=== PATIENT | male | born 1985 | race Caucasian/White ===

== ENCOUNTER 2017-10-14 19:06 | Inpatient (IN) | payer OTHER ==
[~2017-10-14] VITALS: Ht 200.7 cm; Wt 142.5 kg
[~2017-10-14 19:06] MED LIST: ATOR40TA PO; IBUHYD PO; INSDET100 SC; INSU100I6 SC; INSULIN SYRING1 EAC1 SC; LEVEMIR FL100 UNIT/1 SC; LISI5 PO; Lantus100 UNIT/1 SC; METF500 PO; Novolin R100 UNIT/M SC; Novolog Fl100 UNIT/1 SC; Novolog100 UNIT/2 SC; PENVK500 PO; Prinivil5 MG PO; RXHYDACE PO; TRAM50 PO
[2017-10-14 19:38] LABS: BASOPHILS ABSOLUTE AUTO 0.05 K/mm3 (0.00-0.23); BASOPHILS PERCENT AUTO 1 % (0-2); EOSINOPHILS ABSOLUTE AUTO 0.12 K/mm3 (0.00-0.68); EOSINOPHILS PERCENT AUTO 2 % (0-6); Hematocrit 45.5 % (37.0-53.0); Hemoglobin 15.5 g/dL (13.5-17.5); IMMATURE GRAN ABSOLUTE AUTO 0.02 K/mm3 (0.00-0.10); IMMATURE GRAN PERCENT AUTO 0 % (0-1); LYMPHOCYTES ABSOLUTE AUTO 1.62 K/mm3 (0.84-5.20); LYMPHOCYTES PERCENT AUTO 24 % (21-46); MONOCYTES ABSOLUTE AUTO 0.46 K/mm3 (0.16-1.47); MONOCYTES PERCENT AUTO 7 % (4-13); Mean Corpuscular HGB 27.8 pg (26.0-34.0); Mean Corpuscular HGB Conc 34.1 g/dL (31.5-36.5); Mean Corpuscular Volume 82 fL (80-100); Mean Platelet Volume 9.8 fL (9.1-12.4); NEUTROPHILS ABSOLUTE AUTO 4.62 K/mm3 (1.96-9.15); NEUTROPHILS PERCENT AUTO 67 % (41-73); Platelet Count 146 K/mm3 (150-400); RDW Coefficient Variation 12.3 % (11.7-14.2); RDW Standard Deviation 36.3 fL (35.1-46.3); Red Blood Cell Count 5.58 M/mm3 (4.30-5.90); White Blood Cell Count 6.89 K/mm3 (4.00-11.30)
[2017-10-14 20:07] LABS: Source, Urine Clean Catch
[2017-10-14 20:11] LABS: Appearance, Urine Clear (Clear); Bilirubin, Urine Neg (Neg); Blood, Urine Neg (Neg); Color, Urine Yellow (P-Yellow); Glucose Qualitative, Urine 4+ (Neg); Ketones, Urine 3+ (Neg); Leukocyte Esterase, Urine Neg (Neg); Nitrite, Urine Neg (Neg); Protein, Urine Neg (Neg); Urobilinogen, Urine NORM (Normal)
[2017-10-14 20:15] LABS: Alanine Aminotransfer (ALT/SGP 176 U/L (12-78); Albumin, Blood 3.6 g/dL (3.4-5.0); Alk Phos 147 U/L (50-136); Anion Gap 15 mmol/L (6-16); Aspartate Aminotrans (AST/SGOT 69 U/L (12-37); Bilirubin, Total 1.6 mg/dL (0.1-1.0); Blood Urea Nitrogen 23 mg/dL (8-24); Bun/Creatinine Ratio 50.1 (12.0-20.0); CO2, Blood 20 mmol/L (21-32); Calcium, Blood 9.2 mg/dL (8.5-10.1); Chloride, Blood 89 mmol/L (98-108); Creatinine, Blood 0.46 mg/dL (0.60-1.20); Globulin, Blood 3.5 g/dL (2.2-4.0); Glomerular Filtration Rate >60 (60-); Glucose, Blood 692 mg/dL (70-99); Potassium, Blood 4.2 mmol/L (3.5-5.5); Sodium, Blood 124 mmol/L (136-145); Total Protein, Blood 7.1 g/dL (6.4-8.2)
[2017-10-14 21:14] LABS: Base Excess Venous 0.6 mmol/L; Bicarbonate Venous 24.9 mmol/L (24.0-30.0); PCO2 Venous 41.6 mmHg (38-42); PO2 Venous 137 mmHg (38-42)
[2017-10-14 22:28] LABS: Beta-hydroxybutyrate 9.7 mg/dL (0.2-2.8); Glucose, Blood 590 mg/dL (70-99)
[2017-10-14 23:16] LABS: Amylase, Blood 21 U/L (25-115); Anion Gap 10 mmol/L (6-16); CO2, Blood 27 mmol/L (21-32); Chloride, Blood 95 mmol/L (98-108); Ethanol (Alcohol), Blood, Med <3 mg/dL; Magnesium, Blood 1.8 mg/dL (1.6-2.4); Phosphorus, Blood 3.6 mg/dL (2.5-4.9); Potassium, Blood 3.7 mmol/L (3.5-5.5); Sodium, Blood 132 mmol/L (136-145)
[2017-10-14 23:50] LABS: Osmolality, Serum 306 mos/KG (275-300)
[2017-10-15 03:46] LABS: BASOPHILS ABSOLUTE AUTO 0.04 K/mm3 (0.00-0.23); BASOPHILS PERCENT AUTO 1 % (0-2); EOSINOPHILS ABSOLUTE AUTO 0.17 K/mm3 (0.00-0.68); EOSINOPHILS PERCENT AUTO 3 % (0-6); Hematocrit 39.8 % (37.0-53.0); Hemoglobin 13.7 g/dL (13.5-17.5); IMMATURE GRAN ABSOLUTE AUTO 0.02 K/mm3 (0.00-0.10); IMMATURE GRAN PERCENT AUTO 0 % (0-1); LYMPHOCYTES ABSOLUTE AUTO 2.26 K/mm3 (0.84-5.20); LYMPHOCYTES PERCENT AUTO 36 % (21-46); MONOCYTES ABSOLUTE AUTO 0.43 K/mm3 (0.16-1.47); MONOCYTES PERCENT AUTO 7 % (4-13); Mean Corpuscular HGB 27.5 pg (26.0-34.0); Mean Corpuscular HGB Conc 34.4 g/dL (31.5-36.5); Mean Corpuscular Volume 80 fL (80-100); Mean Platelet Volume 9.6 fL (9.1-12.4); NEUTROPHILS ABSOLUTE AUTO 3.35 K/mm3 (1.96-9.15); NEUTROPHILS PERCENT AUTO 54 % (41-73); Platelet Count 154 K/mm3 (150-400); RDW Coefficient Variation 12.5 % (11.7-14.2); RDW Standard Deviation 35.8 fL (35.1-46.3); Red Blood Cell Count 4.99 M/mm3 (4.30-5.90); White Blood Cell Count 6.27 K/mm3 (4.00-11.30)
[2017-10-15 04:07] LABS: Anion Gap 6 mmol/L (6-16); Beta-hydroxybutyrate 1.8 mg/dL (0.2-2.8); Blood Urea Nitrogen 18 mg/dL (8-24); CO2, Blood 30 mmol/L (21-32); Calcium, Blood 8.3 mg/dL (8.5-10.1); Chloride, Blood 102 mmol/L (98-108); Creatinine, Blood 0.49 mg/dL (0.60-1.20); Glomerular Filtration Rate >60 (60-); Glucose, Blood 221 mg/dL (70-99); Sodium, Blood 138 mmol/L (136-145)
[2017-11-23] MEDS ORDERED: NIX59 ML TOP (15:23)
[2018-04-05] MEDS ORDERED: Monodox100 MG PO (16:54)
[2018-04-05] MEDS ORDERED: Norco 5-325 Ta1 EACH PO (16:55)
[2018-07-08] MEDS ORDERED: Novolog Fl100 UNIT/1 SC (17:10)
[2018-07-08] MEDS ORDERED: METF500C PO (17:10)
[2018-07-08] MEDS ORDERED: INSULIN PEN NE1 EACH SC (17:10)
[2018-07-08] MEDS ORDERED: LEVEMIR FL100 UNIT/1 SC (17:10)
== END 2017-10-15 14:40 | disposition home or self-care (01) | DRG 638 ==
LOC: ER 19:06 → ICUE 10-15 00:38 → ICUW 10-15 00:38 → ICUE 10-15 00:44
PROVIDERS: Family Medicine; Physician Assistant
DX: E11.10 Type 2 diabetes mellitus with ketoacidosis without coma (principal); E87.1 Hypo-osmolality and hyponatremia; E11.65 Type 2 diabetes mellitus with hyperglycemia; I10 Essential (primary) hypertension; E78.5 Hyperlipidemia, unspecified; F17.220 Nicotine dependence, chewing tobacco, uncomplicated; E66.9 Obesity, unspecified; Z68.35 Body mass index [BMI] 35.0-35.9, adult; Z79.84 Long term (current) use of oral hypoglycemic drugs; Z79.4 Long term (current) use of insulin; Z79.899 Other long term (current) drug therapy
CPT/HCPCS: 36415; 71046; 80048; 80051; 80053; 81003; 82010; 82150; 82803; 82947; 83036; 83690; 83735; 83930; 84100; 85025; 93005; 93010; 96360; 96361; 99285; C9113; G0480; J1650; J1815; J2001; J3480; J7030; J7050

== ENCOUNTER 2017-10-23 20:42 | Emergency (ER) | payer OTHER ==
[~2017-10-23] VITALS: Ht 200.7 cm; Wt 140.6 kg
[2017-10-23 22:41] LABS: BASOPHILS ABSOLUTE AUTO 0.05 K/mm3 (0.00-0.23); BASOPHILS PERCENT AUTO 1 % (0-2); EOSINOPHILS ABSOLUTE AUTO 0.06 K/mm3 (0.00-0.68); EOSINOPHILS PERCENT AUTO 1 % (0-6); Hematocrit 45.4 % (37.0-53.0); Hemoglobin 15.9 g/dL (13.5-17.5); IMMATURE GRAN ABSOLUTE AUTO 0.02 K/mm3 (0.00-0.10); IMMATURE GRAN PERCENT AUTO 0 % (0-1); LYMPHOCYTES ABSOLUTE AUTO 1.92 K/mm3 (0.84-5.20); LYMPHOCYTES PERCENT AUTO 25 % (21-46); MONOCYTES ABSOLUTE AUTO 0.73 K/mm3 (0.16-1.47); MONOCYTES PERCENT AUTO 10 % (4-13); Mean Corpuscular HGB 27.2 pg (26.0-34.0); Mean Corpuscular Volume 78 fL (80-100); Mean Platelet Volume 9.2 fL (9.1-12.4); NEUTROPHILS ABSOLUTE AUTO 4.79 K/mm3 (1.96-9.15); NEUTROPHILS PERCENT AUTO 63 % (41-73); Platelet Count 194 K/mm3 (150-400); RDW Coefficient Variation 12.1 % (11.7-14.2); RDW Standard Deviation 33.5 fL (35.1-46.3); Red Blood Cell Count 5.85 M/mm3 (4.30-5.90); White Blood Cell Count 7.57 K/mm3 (4.00-11.30)
[2017-10-23 22:56] LABS: Anion Gap 12 mmol/L (6-16); Blood Urea Nitrogen 18 mg/dL (8-24); Bun/Creatinine Ratio 32.1 (12.0-20.0); CO2, Blood 26 mmol/L (21-32); Calcium, Blood 9.6 mg/dL (8.5-10.1); Chloride, Blood 93 mmol/L (98-108); Creatinine, Blood 0.56 mg/dL (0.60-1.20); Glomerular Filtration Rate >60 (60-); Glucose, Blood 467 mg/dL (70-99); Potassium, Blood 3.9 mmol/L (3.5-5.5); Sodium, Blood 131 mmol/L (136-145)
[2017-10-23] MEDS ORDERED: CEPH500 PO (23:20)
[2017-10-23] MEDS ORDERED: Bactrim Ds Tab1 EACH PO (23:20)
[2017-11-23] MEDS ORDERED: NIX59 ML TOP (15:23)
[2018-04-05] MEDS ORDERED: Monodox100 MG PO (16:54)
[2018-04-05] MEDS ORDERED: Norco 5-325 Ta1 EACH PO (16:55)
[2018-07-08] MEDS ORDERED: LEVEMIR FL100 UNIT/1 SC (17:10)
[2018-07-08] MEDS ORDERED: METF500C PO (17:10)
[2018-07-08] MEDS ORDERED: INSULIN PEN NE1 EACH SC (17:10)
[2018-07-08] MEDS ORDERED: Novolog Fl100 UNIT/1 SC (17:10)
== END 2017-10-23 23:50 | disposition home or self-care (01) ==
LOC: ER 20:42
PROVIDERS: Physician Assistant
DX: L03.011 Cellulitis of right finger (principal); E11.10 Type 2 diabetes mellitus with ketoacidosis without coma; Z79.4 Long term (current) use of insulin; Z79.899 Other long term (current) drug therapy
CPT/HCPCS: 10060; 36415; 80048; 85025; 87070; 87075; 87077; 87147; 87186; 87205; 96374; 99283; J0690

== ENCOUNTER 2017-11-23 15:15 | Emergency (ER) | END 2017-11-23 15:36 | disposition home or self-care (01) ==

== ENCOUNTER 2018-03-17 12:09 | Emergency (ER) | payer OTHER ==
[~2018-03-17] VITALS: Ht 200.7 cm; Wt 140.6 kg
[~2018-03-17 12:09] MED LIST changes: +Bactrim Ds Tab1 EACH PO; +CEPH500 PO; +NIX59 ML TOP
[2018-03-17 12:41] LABS: BASOPHILS ABSOLUTE AUTO 0.04 K/mm3 (0.00-0.23); BASOPHILS PERCENT AUTO 1 % (0-2); EOSINOPHILS ABSOLUTE AUTO 0.06 K/mm3 (0.00-0.68); EOSINOPHILS PERCENT AUTO 1 % (0-6); Hematocrit 42.8 % (37.0-53.0); Hemoglobin 15.8 g/dL (13.5-17.5); IMMATURE GRAN ABSOLUTE AUTO 0.03 K/mm3 (0.00-0.10); IMMATURE GRAN PERCENT AUTO 1 % (0-1); LYMPHOCYTES ABSOLUTE AUTO 1.58 K/mm3 (0.84-5.20); LYMPHOCYTES PERCENT AUTO 24 % (21-46); MONOCYTES ABSOLUTE AUTO 0.66 K/mm3 (0.16-1.47); MONOCYTES PERCENT AUTO 10 % (4-13); Mean Corpuscular HGB 28.2 pg (26.0-34.0); Mean Corpuscular HGB Conc 36.9 g/dL (31.5-36.5); Mean Corpuscular Volume 76 fL (80-100); Mean Platelet Volume 9.5 fL (9.1-12.4); NEUTROPHILS ABSOLUTE AUTO 4.25 K/mm3 (1.96-9.15); NEUTROPHILS PERCENT AUTO 64 % (41-73); Platelet Count 199 K/mm3 (150-400); RDW Coefficient Variation 12.2 % (11.7-14.2); RDW Standard Deviation 33.3 fL (35.1-46.3); White Blood Cell Count 6.62 K/mm3 (4.00-11.30)
[2018-03-17 12:57] LABS: Source, Urine Clean Catch
[2018-03-17 13:01] LABS: Bilirubin, Urine Neg (Neg); Blood, Urine Neg (Neg); Glucose Qualitative, Urine 4+ (Neg); Ketones, Urine Neg (Neg); Leukocyte Esterase, Urine Neg (Neg); Nitrite, Urine Neg (Neg); Protein, Urine Neg (Neg); Specific Gravity, Urine 1.005 (1.003-1.022); Urobilinogen, Urine NORM (Normal)
[2018-03-17 13:47] LABS: Alanine Aminotransfer (ALT/SGP 72 U/L (12-78); Albumin, Blood 3.9 g/dL (3.4-5.0); Albumin/Globulin Ratio 1.1 (0.8-1.8); Alk Phos 132 U/L (50-136); Anion Gap 19 mmol/L (6-16); Aspartate Aminotrans (AST/SGOT 35 U/L (12-37); Bilirubin, Total 1.6 mg/dL (0.1-1.0); Blood Urea Nitrogen 28 mg/dL (8-24); Bun/Creatinine Ratio 52.1 (12.0-20.0); CO2, Blood 19 mmol/L (21-32); Chloride, Blood 84 mmol/L (98-108); Creatinine, Blood 0.54 mg/dL (0.60-1.20); Globulin, Blood 3.4 g/dL (2.2-4.0); Glomerular Filtration Rate >60 (60-); Glucose, Blood 803 mg/dL (70-99); Potassium, Blood 4.5 mmol/L (3.5-5.5); Sodium, Blood 122 mmol/L (136-145); Total Protein, Blood 7.3 g/dL (6.4-8.2)
[2018-03-17 13:52] LABS: Color, Urine Yellow (P-Yellow)
[2018-03-17 13:53] LABS: Appearance, Urine Clear (Clear)
[2018-03-17 14:19] LABS: Beta-hydroxybutyrate 3.9 mg/dL (0.2-2.8)
[2018-03-17 17:55] LABS: Calcium, Ionized (POC) 1.21 mmol/L (1.10-1.46); Chloride (POC) 95 mmol/L (98-108); Creatinine (POC) 0.4 mg/dL (0.8-1.3); Glucose (ISTAT POC) 395 mg/dL (70-99); Hemoglobin (POC) 13.9 g/dL (13.5-17.5); Potassium (POC) 3.6 mmol/L (3.5-5.5); Sodium (POC) 132 mmol/L (135-148); Total CO2 (POC) 24 mmol/L (21-32)
[2018-03-17] MEDS ORDERED: METF500C PO (18:16)
[2018-03-17] MEDS ORDERED: INSDET100 SC (18:16)
== END 2018-03-17 18:40 | disposition home or self-care (01) ==
LOC: ER 12:09
PROVIDERS: Emergency Medicine; Physician Assistant
DX: E11.65 Type 2 diabetes mellitus with hyperglycemia (principal); E11.10 Type 2 diabetes mellitus with ketoacidosis without coma; R63.4 Abnormal weight loss; Z68.34 Body mass index [BMI] 34.0-34.9, adult; F17.220 Nicotine dependence, chewing tobacco, uncomplicated; Z91.013 Allergy to seafood; Z79.899 Other long term (current) drug therapy; Z79.4 Long term (current) use of insulin
CPT/HCPCS: 36415; 71046; 80047; 80053; 81000; 81003; 82010; 82947; 85014; 85025; 93005; 93010; 96360; 99283; J1815; J7030

== ENCOUNTER 2018-04-13 10:47 | Emergency (ER) | payer OTHER ==
[~2018-04-13] VITALS: Ht 200.7 cm; Wt 136.1 kg
[~2018-04-13 10:47] MED LIST changes: +METF500C PO; +Monodox100 MG PO; +Norco 5-325 Ta1 EACH PO
[2018-04-13 11:32] LABS: BASOPHILS ABSOLUTE AUTO 0.04 K/mm3 (0.00-0.23); BASOPHILS PERCENT AUTO 1 % (0-2); EOSINOPHILS ABSOLUTE AUTO 0.18 K/mm3 (0.00-0.68); EOSINOPHILS PERCENT AUTO 3 % (0-6); Hematocrit 43.3 % (37.0-53.0); Hemoglobin 15.2 g/dL (13.5-17.5); IMMATURE GRAN ABSOLUTE AUTO 0.06 K/mm3 (0.00-0.10); IMMATURE GRAN PERCENT AUTO 1 % (0-1); LYMPHOCYTES ABSOLUTE AUTO 1.53 K/mm3 (0.84-5.20); LYMPHOCYTES PERCENT AUTO 25 % (21-46); MONOCYTES ABSOLUTE AUTO 0.44 K/mm3 (0.16-1.47); MONOCYTES PERCENT AUTO 7 % (4-13); Mean Corpuscular HGB 27.3 pg (26.0-34.0); Mean Corpuscular HGB Conc 35.1 g/dL (31.5-36.5); Mean Corpuscular Volume 78 fL (80-100); Mean Platelet Volume 9.1 fL (9.1-12.4); NEUTROPHILS ABSOLUTE AUTO 3.78 K/mm3 (1.96-9.15); NEUTROPHILS PERCENT AUTO 63 % (41-73); Platelet Count 188 K/mm3 (150-400); RDW Coefficient Variation 11.9 % (11.7-14.2); RDW Standard Deviation 33.4 fL (35.1-46.3); Red Blood Cell Count 5.56 M/mm3 (4.30-5.90); White Blood Cell Count 6.03 K/mm3 (4.00-11.30)
[2018-04-13 12:15] LABS: Alanine Aminotransfer (ALT/SGP 53 U/L (12-78); Albumin, Blood 3.7 g/dL (3.4-5.0); Alk Phos 126 U/L (50-136); Anion Gap 11 mmol/L (6-16); Aspartate Aminotrans (AST/SGOT 22 U/L (12-37); Beta-hydroxybutyrate 1.6 mg/dL (0.2-2.8); Bilirubin, Total 0.6 mg/dL (0.1-1.0); Blood Urea Nitrogen 15 mg/dL (8-24); Bun/Creatinine Ratio 27.9 (12.0-20.0); CO2, Blood 24 mmol/L (21-32); Calcium, Blood 8.8 mg/dL (8.5-10.1); Chloride, Blood 93 mmol/L (98-108); Creatinine, Blood 0.54 mg/dL (0.60-1.20); Globulin, Blood 3.6 g/dL (2.2-4.0); Glomerular Filtration Rate >60 (60-); Glucose, Blood 684 mg/dL (70-99); Potassium, Blood 4.1 mmol/L (3.5-5.5); Sodium, Blood 128 mmol/L (136-145); Total Protein, Blood 7.3 g/dL (6.4-8.2)
[2018-04-13 14:10] LABS: Calcium, Ionized (POC) 1.07 mmol/L (1.10-1.46); Chloride (POC) 97 mmol/L (98-108); Creatinine (POC) 0.4 mg/dL (0.8-1.3); Glucose (ISTAT POC) 433 mg/dL (70-99); Hemoglobin (POC) 12.9 g/dL (13.5-17.5); Potassium (POC) 4.2 mmol/L (3.5-5.5); Sodium (POC) 132 mmol/L (135-148); Total CO2 (POC) 24 mmol/L (21-32)
== END 2018-04-13 14:27 | disposition home or self-care (01) ==
LOC: ER 10:47
PROVIDERS: Emergency Medicine
DX: L02.11 Cutaneous abscess of neck (principal); E11.65 Type 2 diabetes mellitus with hyperglycemia; F17.220 Nicotine dependence, chewing tobacco, uncomplicated; Z91.013 Allergy to seafood; Z79.899 Other long term (current) drug therapy; Z79.4 Long term (current) use of insulin
CPT/HCPCS: 10061; 36415; 80047; 80053; 82010; 82947; 85014; 85025; 87070; 87075; 87077; 87147; 87186; 87205; 96360; 96361; 99283-25; J1815; J7030

== ENCOUNTER → 2019-12-09 | Outpatient (CLI) | payer OTHER ==
[~2019-12-09] MED LIST changes: +INSULIN PEN NE1 EACH SC
[2019-12-09 12:34] LABS: Influenza A Negative (NEGATIVE); Influenza B Negative (NEGATIVE)
== END ==
LOC: LAB SHORT 11:34
PROVIDERS: Internal Medicine
DX: R50.9 Fever, unspecified (principal)
CPT/HCPCS: 87804

== ENCOUNTER 2019-12-22 14:37 | Emergency (ER) | payer OTHER ==
[~2019-12-22] VITALS: Ht 200.7 cm; Wt 136.1 kg
[2019-12-22 16:37] LABS: BASOPHILS ABSOLUTE AUTO 0.04 K/mm3 (0.00-0.23); BASOPHILS PERCENT AUTO 0 % (0-2); EOSINOPHILS ABSOLUTE AUTO 0.03 K/mm3 (0.00-0.68); EOSINOPHILS PERCENT AUTO 0 % (0-6); Hematocrit 41.5 % (37.0-53.0); Hemoglobin 14.2 g/dL (13.5-17.5); IMMATURE GRAN ABSOLUTE AUTO 0.07 K/mm3 (0.00-0.10); IMMATURE GRAN PERCENT AUTO 0 % (0-1); LYMPHOCYTES ABSOLUTE AUTO 1.28 K/mm3 (0.84-5.20); LYMPHOCYTES PERCENT AUTO 8 % (21-46); MONOCYTES ABSOLUTE AUTO 1.49 K/mm3 (0.16-1.47); MONOCYTES PERCENT AUTO 9 % (4-13); Mean Corpuscular HGB 27.9 pg (26.0-34.0); Mean Corpuscular HGB Conc 34.2 g/dL (31.5-36.5); Mean Corpuscular Volume 82 fL (80-100); Mean Platelet Volume 9.1 fL (9.1-12.4); NEUTROPHILS PERCENT AUTO 83 % (41-73); Platelet Count 204 K/mm3 (150-400); RDW Coefficient Variation 12.3 % (11.7-14.2); RDW Standard Deviation 36.7 fL (35.1-46.3); Red Blood Cell Count 5.09 M/mm3 (4.30-5.90); White Blood Cell Count 16.81 K/mm3 (4.00-11.30)
[2019-12-22 16:59] LABS: Alanine Aminotransfer (ALT/SGP 22 U/L (12-78); Albumin, Blood 3.7 g/dL (3.4-5.0); Albumin/Globulin Ratio 0.9 (0.8-1.8); Alk Phos 93 U/L (50-136); Anion Gap 5 mmol/L (6-16); Aspartate Aminotrans (AST/SGOT 9 U/L (12-37); Bilirubin, Total 1.7 mg/dL (0.1-1.0); Blood Urea Nitrogen 9 mg/dL (8-24); Bun/Creatinine Ratio 13.7 (12.0-20.0); CO2, Blood 27 mmol/L (21-32); Calcium, Blood 9.1 mg/dL (8.5-10.1); Chloride, Blood 101 mmol/L (98-108); Creatinine, Blood 0.66 mg/dL (0.60-1.20); Globulin, Blood 4.3 g/dL (2.2-4.0); Glomerular Filtration Rate >60 (60-); Glucose, Blood 146 mg/dL (70-99); Potassium, Blood 4.2 mmol/L (3.5-5.5); Sodium, Blood 133 mmol/L (136-145)
[2019-12-22] MEDS ORDERED: Amoxicillin500 MG PO (17:24)
== END 2019-12-22 17:35 | disposition home or self-care (01) ==
LOC: ER 14:37
PROVIDERS: Emergency Medicine
DX: J02.0 Streptococcal pharyngitis (principal); E11.9 Type 2 diabetes mellitus without complications; F17.220 Nicotine dependence, chewing tobacco, uncomplicated
CPT/HCPCS: 36415; 71045; 80053; 85025; 87430; 96360; 99283-25; J7030

== ENCOUNTER 2020-10-26 22:35 | Emergency (ER) | payer SELFPAY ==
[~2020-10-26] VITALS: Ht 200.7 cm; Wt 136.1 kg
[~2020-10-26 22:35] MED LIST changes: +Amoxicillin500 MG PO
[2020-10-26] MEDS ORDERED: IBU600 MG PO (23:27)
== END 2020-10-26 23:35 | disposition home or self-care (01) ==
LOC: ER 22:35
DX: S46.212A Strain of muscle, fascia and tendon of other parts of biceps, left arm, initial encounter (principal); E11.9 Type 2 diabetes mellitus without complications; F17.220 Nicotine dependence, chewing tobacco, uncomplicated; Z91.02 Food additives allergy status; X50.0XXA Overexertion from strenuous movement or load, initial encounter
CPT/HCPCS: 99283

== ENCOUNTER 2020-11-04 16:25 | Emergency (ER) | payer OTHER ==
[~2020-11-04] VITALS: Ht 200.7 cm; Wt 136.1 kg
[~2020-11-04 16:25] MED LIST changes: +IBU600 MG PO
[2020-11-04] MEDS ORDERED: HYDR1TAB94 PO ×2 (19:04→19:50)
== END 2020-11-04 20:01 | disposition home or self-care (01) ==
LOC: ER 16:25
DX: S46.212A Strain of muscle, fascia and tendon of other parts of biceps, left arm, initial encounter (principal); F17.220 Nicotine dependence, chewing tobacco, uncomplicated; Z91.013 Allergy to seafood
CPT/HCPCS: 73080; 76882; 96374; 96375; 99284-25; A9270; J2270; J2405

== ENCOUNTER 2020-11-14 05:16 | Day surgery (SDC) | payer OTHER ==
[~2020-11-14] VITALS: Ht 200.7 cm; Wt 149.0 kg
[~2020-11-14 05:16] MED LIST changes: +HYDR1TAB94 PO
--- NOTE | 2020-11-14 07:54 | NUR ---
11/14/20 0754 Kayce Giang TIMEOUT AND SITE CHECK FOR ISB DONE WITH DR QUINTANILLA.
--- NOTE | 2020-11-14 10:06 | NUR ---
11/14/20 1006 JUAN DUNHAM PT TO STEP DOWN VIA BED, SBA TO RECLINER. PT VERY DROWSY AND SATS DROPPING WHEN ASLEEP. PT PLACED ON 5L VIA NON-REBREATHER. EDUCATED ON SLEEP APNEA WELL DUE TO OBSTRUCTION. PT DENIES PAIN/NAUSEA. IV PATENT
== END 2020-11-14 10:48 | disposition home or self-care (01) ==
LOC: ORSCSDS 05:16
PROVIDERS: Orthopaedic Surgery
PROC: 0LM40ZZ Reattachment of Left Upper Arm Tendon, Open Approach (ICD-10-PCS; principal; 2020-11-14 08:00)
DX: S46.212A Strain of muscle, fascia and tendon of other parts of biceps, left arm, initial encounter (principal); I10 Essential (primary) hypertension; E11.9 Type 2 diabetes mellitus without complications; E66.01 Morbid (severe) obesity due to excess calories; Z68.37 Body mass index [BMI] 37.0-37.9, adult
CPT/HCPCS: 82947; C1713; J0171; J0690; J1100; J1885; J2250; J2405; J2704; J2795; J3010; J7120

== ENCOUNTER 2021-03-24 12:30 | Emergency (ER) | payer OTHER ==
[~2021-03-24] VITALS: Ht 200.7 cm; Wt 136.1 kg
[2021-03-24] MEDS ORDERED: FUNGOID-D113 G1 TOP (12:47)
[2021-03-24] MEDS ORDERED: Vibramycin100 MG PO (12:47)
== END 2021-03-24 12:47 | disposition home or self-care (01) ==
LOC: ER 12:30
DX: L03.116 Cellulitis of left lower limb (principal); E11.9 Type 2 diabetes mellitus without complications; F17.220 Nicotine dependence, chewing tobacco, uncomplicated; Z91.013 Allergy to seafood
CPT/HCPCS: 99283

== ENCOUNTER 2021-03-26 01:15 | Observation (INO) | payer OTHER ==
[~2021-03-26] VITALS: Ht 200.7 cm; Wt 134.4 kg
[~2021-03-26 01:15] MED LIST changes: +FUNGOID-D113 G1 TOP; +Vibramycin100 MG PO
[2021-03-26 05:25] LABS: BASOPHILS ABSOLUTE AUTO 0.04 K/mm3 (0.00-0.23); BASOPHILS PERCENT AUTO 0 % (0-2); EOSINOPHILS PERCENT AUTO 1 % (0-6); Hematocrit 42.6 % (37.0-53.0); Hemoglobin 14.9 g/dL (13.5-17.5); IMMATURE GRAN ABSOLUTE AUTO 0.05 K/mm3 (0.00-0.10); IMMATURE GRAN PERCENT AUTO 1 % (0-1); LYMPHOCYTES ABSOLUTE AUTO 2.05 K/mm3 (0.84-5.20); LYMPHOCYTES PERCENT AUTO 23 % (21-46); MONOCYTES ABSOLUTE AUTO 1.04 K/mm3 (0.16-1.47); MONOCYTES PERCENT AUTO 11 % (4-13); Mean Corpuscular HGB 27.4 pg (26.0-34.0); Mean Corpuscular Volume 78 fL (80-100); Mean Platelet Volume 9.7 fL (9.1-12.4); NEUTROPHILS ABSOLUTE AUTO 5.85 K/mm3 (1.96-9.15); NEUTROPHILS PERCENT AUTO 64 % (41-73); Platelet Count 151 K/mm3 (150-400); RDW Coefficient Variation 12.2 % (11.7-14.2); RDW Standard Deviation 34.5 fL (35.1-46.3); Red Blood Cell Count 5.44 M/mm3 (4.30-5.90); White Blood Cell Count 9.13 K/mm3 (4.00-11.30)
[2021-03-26 05:42] LABS: Anion Gap 7 mmol/L (6-16); Blood Urea Nitrogen 11 mg/dL (8-24); CO2, Blood 26 mmol/L (21-32); Calcium, Blood 8.8 mg/dL (8.5-10.1); Chloride, Blood 99 mmol/L (98-108); Creatinine, Blood 0.61 mg/dL (0.60-1.20); Glomerular Filtration Rate >60 (60-); Glucose, Blood 332 mg/dL (70-99); Potassium, Blood 3.6 mmol/L (3.5-5.5); Sodium, Blood 132 mmol/L (136-145)
--- NOTE | 2021-03-26 07:30 | NUR ---
Assumed Care Received report from VERONICA Beckett RN. Patient arrived via w/c with one personal belongings bag. Encouraged to send home nonessential and valuable items. Transferred self to bed from w/c, appears to have impaired gait d/t pain from abscess/wound to L foot. Settled to room, call light near, bed in lowest position. A/Ox4.
--- NOTE | 2021-03-26 17:55 | NUR ---
Shift Summary A/Ox4, pleasant and cooperative. Up independently in room and to bathroom. Weight bearing as tolerated on L foot. Pain to L foot, but tolerable. Appetite is good. Patient has been sleeping throughout shift, easily arousable. Awaiting consult from Dr. Cervantes. Discuss effects of uncontrolled glucose and its complications, patient showed interests and engagement in conversation. Standing weight obtained. Consent for photo obtained and photo of wound to L foot placed in chart. VSS, afebrile. WCTM.
--- NOTE | 2021-03-27 05:43 | NUR ---
36 year old Male admitted yesterday for lt foot abscess. PT has wound between great & second toe draining mod amt purulent sang drainage x 1. Lt foot edema redness warmth. On IV vanco & unasyn. Will be NPO this AM after CLear Liquid BF for I & D lt foot wound. IDDM PT has BG greater than 250 at HS. Recieced 10 units semglee insulin. Medicated for lt foot pain of 10 with tylenol 650 mg with mild helpful effect. Elevated lt foot on 2 pillows to decrease edema & pain.
[2021-03-27 06:03] LABS: Hemoglobin 14.1 g/dL (13.5-17.5); Mean Corpuscular HGB 27.6 pg (26.0-34.0); Mean Corpuscular HGB Conc 34.4 g/dL (31.5-36.5); Mean Corpuscular Volume 80 fL (80-100); Mean Platelet Volume 9.7 fL (9.1-12.4); Platelet Count 127 K/mm3 (150-400); RDW Coefficient Variation 12.2 % (11.7-14.2); RDW Standard Deviation 35.1 fL (35.1-46.3); Red Blood Cell Count 5.11 M/mm3 (4.30-5.90); White Blood Cell Count 6.35 K/mm3 (4.00-11.30)
[2021-03-27 06:30] LABS: Anion Gap 6 mmol/L (6-16); Blood Urea Nitrogen 11 mg/dL (8-24); Bun/Creatinine Ratio 18.7 (12.0-20.0); CO2, Blood 27 mmol/L (21-32); Calcium, Blood 8.2 mg/dL (8.5-10.1); Chloride, Blood 104 mmol/L (98-108); Creatinine, Blood 0.59 mg/dL (0.60-1.20); Glomerular Filtration Rate >60 (60-); Glucose, Blood 242 mg/dL (70-99); Potassium, Blood 3.8 mmol/L (3.5-5.5); Sodium, Blood 137 mmol/L (136-145); Vancomycin, Trough 4.9 ug/mL (5.0-10.0)
[2021-03-27 08:58] LABS: SARS-Cov-2 (COVID-19) PCR, MMC NEGATIVE (NEGATIVE)
--- NOTE | 2021-03-27 11:18 | NUR ---
BLOOD GLUCOSE/NPO PATIENT CURRENTLY NPO. BLOOD GLUCOSE > 300. PER DEBORAH SALAZAR TO TREAT PER MED CS.
--- NOTE | 2021-03-27 15:25 | NUR ---
THE PATIENT WAS BROUGHT TO D/S FOR HIS PROCEDURE. Ambulatory in Day Surgery Lungs clear T/O to Auscultation. History, Chart, Medications and Allergies reviewed before start of procedure.Patient confirms NPO status and agrees with scheduled surgery. Pre-Op teaching done. Pt verbalizes understanding.
--- NOTE | 2021-03-27 17:37 | NUR ---
03/27/21 1737 Susan Rose LEFT ANKLE TOURNIQUET 18" INFLATED AT 1639, DEFLATED AT 1648. PRESSURE SET AT 250 MMHG.
--- NOTE | 2021-03-27 18:06 | NUR ---
Shift Summary AOx4, pleasant and cooperative. Slept for the most part of the day. Had I&D of L foot. Bulky lilian wrap to L foot. Able to wiggle toes, warm to touch, and cap refill WNL. Transferred self back to bed, stand pivot. Dressing C/D/I. Sitting up in bed with L leg elevated per orders. Patient in bed having dinner. Call light near, no acute complaints. VSS. WCTM.
--- NOTE | 2021-03-28 06:17 | NUR ---
36 year old male with IDDM poorly controlled with lt foot abscess I & D & antibiotic therapy with unasyn & vancomycin IV. PT sleeps must of shift rouses easily & encouraged oral intake. Void x 1 uses urinal at bedside. LT foot elevated as ordered. Blood glucose elevated at HS recieved 20 units semglee. PT has flat affect withdrawn. VSS. Support offered for current illness.
[2021-03-28 06:45] LABS: Vancomycin, Trough 7.9 ug/mL (5.0-10.0)
--- NOTE | 2021-03-28 14:40 | NUR ---
PATIENT REQUESTING TO GO HOME. SPOKE TO DR. BETANCUR, STATED HE WAS OK WITH D/C IF CLEARED BY PODIATRY. CALLED DR. BOYD' OFFICE, LEFT MESSAGE WITH KATHY TO SEE IF PT COULD BE DISCHARGED.
[2021-03-28] MEDS ORDERED: INSULANPEN SC (16:14)
[2021-03-28] MEDS ORDERED: METF500 PO (16:14)
[2021-03-28] MEDS ORDERED: VISBIOME 112.51 EACH PO (16:15)
[2021-03-28] MEDS ORDERED: AMOCLA875 PO (16:16)
--- NOTE | 2021-03-28 16:51 | NUR ---
PATIENT DISCHARGED TO HOME. IV SALINE LOCK REMOVED WITHOUT INCIDENT. PT HAS NO PCP; WAS GIVEN NEW PATIENT PACKET TO SET UP CARE WITH [facility]. EDUCATED HIM THAT HIS LAST HGB AIC WAS > 10; HE IS STILL DIABETIC (DESPITE HIS ASSERTION THAT HE IS NOT) AND HE WILL NEED FOLLOW UP CARE GOING FORWARD TO MANAGE HIS CHRONIC ILLNESS. MEDICATIONS WERE FAXED TO [facility]; SPOKE TO PHARMACY ABOUT PT GETTING GLUCOMETER AND STRIPS TO TEST BG AND THEY STATED IT WILL NOT BE COVERED BY HIS INSURANCE, RECOMMENDED PT GO TO [facility] TO GET RX FILLED. PT GIVEN HARD COPY OF RX FOR GLUCOMETER AND STRIPS, INSTRUCTED TO GO TO [facility] OR [facility] TO FILL. PATIENT STATED HE KNEW HOW TO CHECK HIS BG AND HOW TO INJECT INSULIN FROM PEN (IT HAD BEEN LESS THAN A YEAR) AND HE DID NOT NEED FURTHER EDUCATION. PT VERBALIZED UNDERSTANDING OF ALL D/C INSTRUCTIONS, ALTHOUGH THIS AUTHOR GOT THE SENSE THAT HE WILL NOT BE COMPLIANT. OFF UNIT VIA W/C AT 1642.
== END 2021-03-28 16:40 | disposition home or self-care (01) ==
LOC: ER 01:15 → MEDS 01:16
PROVIDERS: Anesthesiology; Internal Medicine; Student in an Organized Health Care Education/Training Program; ADMIT Family Medicine
DX: L02.612 Cutaneous abscess of left foot (principal); E11.628 Type 2 diabetes mellitus with other skin complications; L03.116 Cellulitis of left lower limb; E87.1 Hypo-osmolality and hyponatremia; E11.65 Type 2 diabetes mellitus with hyperglycemia; F17.220 Nicotine dependence, chewing tobacco, uncomplicated; I10 Essential (primary) hypertension; Z79.4 Long term (current) use of insulin; Z79.899 Other long term (current) drug therapy; Z20.822 Contact with and (suspected) exposure to COVID-19
CPT/HCPCS: 36415; 73620; 80048; 80202; 82947; 83036; 85025; 85027; 87070; 87071; 87075; 87147; 87205; 96365; 96366; 96367; 96376; 99285-25; A9270; G0378; J0295; J1815; J1885; J2405; J2704; J3010; J3370; J7040; J7050; J7120; U0004

== ENCOUNTER 2023-07-17 18:36 | Emergency (ER) | payer OTHER ==
[~2023-07-17] VITALS: Ht 200.7 cm; Wt 111.1 kg
[~2023-07-17 18:36] MED LIST changes: +AMOCLA875 PO; +BASAGLAR K100 UNIT/1 SC; +INSULANPEN SC; +LOSA25 PO; +NOVOLOG FL100 UNIT/3; +VISBIOME 112.51 EACH PO
[2023-07-17 18:42] VITALS: BP 162/116
[2023-07-17] MEDS ORDERED: CEPH500 PO (19:13)
== END 2023-07-17 19:25 | disposition home or self-care (01) ==
LOC: ER 18:36
DX: L03.116 Cellulitis of left lower limb (principal); F17.220 Nicotine dependence, chewing tobacco, uncomplicated; Z91.013 Allergy to seafood; Z79.899 Other long term (current) drug therapy; Z79.84 Long term (current) use of oral hypoglycemic drugs; Z79.4 Long term (current) use of insulin; E11.9 Type 2 diabetes mellitus without complications
CPT/HCPCS: 10060; 99282-25; A9270

== ENCOUNTER 2023-07-20 19:32 | Emergency (ER) | payer OTHER ==
[~2023-07-20] VITALS: Ht 200.7 cm; Wt 111.1 kg
[2023-07-20 19:45] VITALS: BP 161/118
[2023-07-20 20:05] LABS: BASOPHILS ABSOLUTE AUTO 0.03 K/mm3 (0.00-0.23); BASOPHILS PERCENT AUTO 0 % (0-2); EOSINOPHILS ABSOLUTE AUTO 0.13 K/mm3 (0.00-0.68); EOSINOPHILS PERCENT AUTO 1 % (0-6); Hematocrit 41.4 % (37.0-53.0); Hemoglobin 14.6 g/dL (13.5-17.5); IMMATURE GRAN ABSOLUTE AUTO 0.02 K/mm3 (0.00-0.10); IMMATURE GRAN PERCENT AUTO 0 % (0-1); LYMPHOCYTES ABSOLUTE AUTO 1.96 K/mm3 (0.84-5.20); LYMPHOCYTES PERCENT AUTO 21 % (21-46); MONOCYTES ABSOLUTE AUTO 0.74 K/mm3 (0.16-1.47); MONOCYTES PERCENT AUTO 8 % (4-13); Mean Corpuscular HGB 26.9 pg (26.0-34.0); Mean Corpuscular HGB Conc 35.3 g/dL (31.5-36.5); Mean Corpuscular Volume 76 fL (80-100); Mean Platelet Volume 9.1 fL (9.1-12.4); NEUTROPHILS ABSOLUTE AUTO 6.34 K/mm3 (1.96-9.15); NEUTROPHILS PERCENT AUTO 69 % (41-73); Platelet Count 196 K/mm3 (150-400); RDW Coefficient Variation 12.4 % (11.7-14.2); RDW Standard Deviation 33.9 fL (35.1-46.3); Red Blood Cell Count 5.43 M/mm3 (4.30-5.90); White Blood Cell Count 9.22 K/mm3 (4.00-11.30)
[2023-07-20 20:25] LABS: Albumin, Blood 3.8 g/dL (3.4-5.0); Albumin/Globulin Ratio 0.9 (0.8-1.8); Bilirubin, Total 0.8 mg/dL (0.1-1.0); Bun/Creatinine Ratio 30.5 (12.0-20.0); Calcium, Blood 9.3 mg/dL (8.5-10.1); Creatinine, Blood 0.66 mg/dL (0.60-1.20); Globulin, Blood 4.2 g/dL (2.2-4.0); Potassium, Blood 4.6 mmol/L (3.5-5.5)
[2023-07-20] MEDS ORDERED: CLIN300 PO (21:14)
[2023-07-20] MEDS ORDERED: METF500 PO (21:14)
== END 2023-07-20 22:01 | disposition home or self-care (01) ==
LOC: ER 19:32
PROVIDERS: Emergency Medicine
DX: L02.416 Cutaneous abscess of left lower limb (principal); L03.116 Cellulitis of left lower limb; E11.65 Type 2 diabetes mellitus with hyperglycemia; B35.1 Tinea unguium; L89.899 Pressure ulcer of other site, unspecified stage; F17.220 Nicotine dependence, chewing tobacco, uncomplicated; Z91.013 Allergy to seafood
CPT/HCPCS: 10060; 80053; 85025; 96365-59; 99283-25

== ENCOUNTER 2023-11-27 08:24 | Emergency (ER) | payer OTHER ==
[~2023-11-27] VITALS: Ht 200.7 cm; Wt 111.1 kg
[~2023-11-27 08:24] MED LIST changes: +CLIN300 PO
[2023-11-27 08:54] VITALS: BP 182/111
[2023-11-27] MEDS ORDERED: Amoxicillin500 MG PO (09:03)
== END 2023-11-27 09:18 | disposition home or self-care (01) ==
LOC: ER 08:24
DX: K04.7 Periapical abscess without sinus (principal); E11.621 Type 2 diabetes mellitus with foot ulcer; L97.529 Non-pressure chronic ulcer of other part of left foot with unspecified severity; Z91.013 Allergy to seafood; Z88.1 Allergy status to other antibiotic agents; Z88.8 Allergy status to other drugs, medicaments and biological substances
CPT/HCPCS: 99282

== ENCOUNTER 2025-01-15 06:03 | Emergency (ER) | payer OTHER ==
[~2025-01-15] VITALS: Ht 200.7 cm; Wt 113.4 kg
[2025-01-15 06:12] VITALS: BP 144/108
[2025-01-15] MEDS ORDERED: NS 1,000 ML IV SCH ×2 (06:35→06:50)
[2025-01-15] MEDS ORDERED: Ketorolac Tromethamine 30mg Vial IV ONE (06:35)
[2025-01-15 06:44] LABS: BASOPHILS ABSOLUTE AUTO 0.04 K/mm3 (0.00-0.23); BASOPHILS PERCENT AUTO 0 % (0-2); EOSINOPHILS PERCENT AUTO 1 % (0-6); Hematocrit 42.7 % (37.0-53.0); Hemoglobin 15.4 g/dL (13.5-17.5); IMMATURE GRAN ABSOLUTE AUTO 0.04 K/mm3 (0.00-0.10); IMMATURE GRAN PERCENT AUTO 0 % (0-1); LYMPHOCYTES ABSOLUTE AUTO 1.73 K/mm3 (0.84-5.20); LYMPHOCYTES PERCENT AUTO 17 % (21-46); MONOCYTES PERCENT AUTO 10 % (4-13); Mean Corpuscular HGB 26.9 pg (26.0-34.0); Mean Corpuscular HGB Conc 36.1 g/dL (31.5-36.5); Mean Corpuscular Volume 75 fL (80-100); Mean Platelet Volume 9.5 fL (9.1-12.4); NEUTROPHILS ABSOLUTE AUTO 7.37 K/mm3 (1.96-9.15); NEUTROPHILS PERCENT AUTO 72 % (41-73); Platelet Count 151 K/mm3 (150-400); RDW Coefficient Variation 12.6 % (11.7-14.2); RDW Standard Deviation 33.9 fL (35.1-46.3); Red Blood Cell Count 5.72 M/mm3 (4.30-5.90); White Blood Cell Count 10.28 K/mm3 (4.00-11.30)
[2025-01-15 07:02] LABS: Albumin/Globulin Ratio 1.1 (0.8-1.8); Bilirubin, Total 1.7 mg/dL (0.1-1.0); C-REACTIVE PROTEIN, EXT RANGE 0.978 mg/dL (0.000-0.300); Calcium, Blood 8.8 mg/dL (8.5-10.1); Creatinine, Blood 0.52 mg/dL (0.60-1.20); Globulin, Blood 3.6 g/dL (2.2-4.0); Magnesium, Blood 1.7 mg/dL (1.6-2.4); Potassium, Blood 3.8 mmol/L (3.5-5.5); Total Protein, Blood 7.6 g/dL (6.4-8.2)
[2025-01-15] MEDS ORDERED: Lactated Ringer's 1,000 ML IV ONE (08:10)
[2025-01-15] MEDS ORDERED: Ampicillin Sod/Sulbactam Sod 3 GM in NS 100 ML IV ONE (09:00)
[2025-01-15] MEDS ORDERED: Insulin Regular 100 Unit/ML 1ML Dose IV ONE (09:50)
[2025-01-15] MEDS ORDERED: AMOCLA875 PO (09:53)
== END 2025-01-15 10:29 | disposition home or self-care (01) ==
LOC: ER 06:03
PROVIDERS: Student in an Organized Health Care Education/Training Program
DX: L03.221 Cellulitis of neck (principal); J02.9 Acute pharyngitis, unspecified; E11.65 Type 2 diabetes mellitus with hyperglycemia; K02.9 Dental caries, unspecified; Z91.013 Allergy to seafood; F17.290 Nicotine dependence, other tobacco product, uncomplicated
CPT/HCPCS: 36415; 70491; 80053; 82947; 83605; 83735; 85025; 85651; 86140; 87040; 87430; 96361; 96374-59; 96375; 99284-25; J0295; J1815; J1885; J7030; J7120; Q9967

== ENCOUNTER 2025-04-16 04:54 | Emergency (ER) | payer OTHER ==
[~2025-04-16] VITALS: Ht 200.7 cm; Wt 113.4 kg
[~2025-04-16 04:54] MED LIST changes: +SULTRIDS PO
[2025-04-16] MEDS ORDERED: BACTRIM DS TAB1 EAC1 PO (06:54)
[2025-04-16 08:19] VITALS: BP 150/114
== END 2025-04-16 08:20 | disposition home or self-care (01) ==
LOC: ER 04:54
DX: L02.31 Cutaneous abscess of buttock (principal); L03.317 Cellulitis of buttock; E11.9 Type 2 diabetes mellitus without complications; F17.290 Nicotine dependence, other tobacco product, uncomplicated; Z91.013 Allergy to seafood
CPT/HCPCS: 99282

== ENCOUNTER 2025-04-19 23:12 | Inpatient (IN) | payer OTHER ==
[~2025-04-19] VITALS: Ht 200.7 cm; Wt 114.8 kg
[~2025-04-19 23:12] MED LIST changes: +BACTRIM DS TAB1 EAC1 PO
[2025-04-20 00:01] LABS: BASOPHILS ABSOLUTE AUTO 0.05 K/mm3 (0.00-0.23); BASOPHILS PERCENT AUTO 0 % (0-2); EOSINOPHILS ABSOLUTE AUTO 0.16 K/mm3 (0.00-0.68); EOSINOPHILS PERCENT AUTO 1 % (0-6); Hematocrit 36.0 % (37.0-53.0); Hemoglobin 12.6 g/dL (13.5-17.5); IMMATURE GRAN ABSOLUTE AUTO 0.06 K/mm3 (0.00-0.10); IMMATURE GRAN PERCENT AUTO 1 % (0-1); LYMPHOCYTES ABSOLUTE AUTO 1.36 K/mm3 (0.84-5.20); LYMPHOCYTES PERCENT AUTO 12 % (21-46); MONOCYTES ABSOLUTE AUTO 1.45 K/mm3 (0.16-1.47); MONOCYTES PERCENT AUTO 13 % (4-13); Mean Corpuscular HGB Conc 35.0 g/dL (31.5-36.5); Mean Corpuscular Volume 76 fL (80-100); NEUTROPHILS ABSOLUTE AUTO 8.09 K/mm3 (1.96-9.15); NEUTROPHILS PERCENT AUTO 73 % (41-73); NRBC ABSOLUTE 0.00 K/mm3 (0.00-0.02); NRBC Auto 0.0 /100 WBC (0.0-0.2); Platelet Count 163 K/mm3 (150-400); RDW Coefficient Variation 12.2 % (11.7-14.2); RDW Standard Deviation 33.7 fL (35.1-46.3)
[2025-04-20 00:21] LABS: Alanine Aminotransfer (ALT/SGP 13.0 U/L (12-78); Albumin, Blood 2.8 g/dL (3.4-5.0); Albumin/Globulin Ratio 0.7 (0.8-1.8); Anion Gap 10.0 mmol/L (3-11); Aspartate Aminotrans (AST/SGOT 7.0 U/L (12-37); Bilirubin, Total 0.6 mg/dL (0.1-1.0); Blood Urea Nitrogen 16.0 mg/dL (8-24); CO2, Blood 28.0 mmol/L (21-32); Calcium, Blood 8.4 mg/dL (8.5-10.1); Chloride, Blood 91.0 mmol/L (98-108); Creatinine, Blood 0.66 mg/dL (0.60-1.20); Globulin, Blood 4.0 g/dL (2.2-4.0); Glucose, Blood 565.0 mg/dL (70-99); Potassium, Blood 4.0 mmol/L (3.5-5.5); Sodium, Blood 125.0 mmol/L (136-145); Total Protein, Blood 6.8 g/dL (6.4-8.2)
[2025-04-20] MEDS ORDERED: Vancomycin (Pharmacy Consult) IV PRN (01:00)
[2025-04-20] MEDS ORDERED: Cefepime HCl 1,000 MG in NS 100 ML IV ONE (01:00)
[2025-04-20] MEDS ORDERED: NS 1,000 ML IV SCH (01:05)
[2025-04-20] MEDS ORDERED: HYDROmorphone HCl/Pf 1MG SYR IV PRN ×2 (01:10→04:50)
[2025-04-20] MEDS ORDERED: Potassium Chl 20MEQ/Water100ML 100 ML IV ONE (01:10)
[2025-04-20] MEDS ORDERED: Insulin Regular 100 Unit/ML 1ML Dose IV ONE (01:10)
[2025-04-20] MEDS ORDERED: Ondansetron HCl 2 MG / ML 2ML Vial IV ONE (01:10)
[2025-04-20 01:31] LABS: Source, Urine Clean Catch
[2025-04-20 01:33] LABS: pH Blood Venous 7.42 (7.34-7.37)
[2025-04-20 01:38] LABS: Bilirubin, Urine Neg (Neg); Glucose Qualitative, Urine 4+ (Neg); Ketones, Urine Neg (Neg); Leukocyte Esterase, Urine Neg (Neg); Protein, Urine Neg (Neg); Specific Gravity, Urine 1.005 (1.003-1.022); Urobilinogen, Urine NORM (Normal)
[2025-04-20] MEDS ORDERED: Lidocaine/Tetracaine/Epinephr 3 ML GEL SYRINGE TOP ONE (01:55)
[2025-04-20] MEDS ORDERED: Vancomycin HCL 2,500 MG in NS 500 ML IV ONE (02:25)
[2025-04-20 02:32] LABS: C-Reactive Protein, High Sens. 155.0 mg/L (0.000-3.000)
[2025-04-20 02:33] LABS: Color, Urine Pale Yellow (P-Yellow)
[2025-04-20] MEDS ORDERED: HYDROcodone 10-APAP 325 TAB PO PRN (04:50)
[2025-04-20] MEDS ORDERED: Insulin Glargine-Yfgn 100 Unit/mL 3 ML SYR SC SCH ×3 (05:00→21:00)
[2025-04-20] MEDS ORDERED: Polyethylene Glycol 3350 17 gm PO PRN (06:05)
[2025-04-20 06:16] VITALS: BP 116/70
[2025-04-20] MEDS ORDERED: Piperacillin/Tazobactam Sod 4.5 GM in NS 100 ML IV SCH (06:26)
[2025-04-20] MEDS ORDERED: NS 250 ML IV PRN (06:35)
[2025-04-20] MEDS ORDERED: Insulin Glargine-Yfgn 100 Unit/mL 3 ML SYR SC ONE ×2 (07:00→10:00)
[2025-04-20 07:06] LABS: BASOPHILS ABSOLUTE AUTO 0.04 K/mm3 (0.00-0.23); BASOPHILS PERCENT AUTO 0 % (0-2); EOSINOPHILS ABSOLUTE AUTO 0.22 K/mm3 (0.00-0.68); EOSINOPHILS PERCENT AUTO 2 % (0-6); Hematocrit 32.0 % (37.0-53.0); Hemoglobin 11.5 g/dL (13.5-17.5); IMMATURE GRAN ABSOLUTE AUTO 0.06 K/mm3 (0.00-0.10); IMMATURE GRAN PERCENT AUTO 1 % (0-1); LYMPHOCYTES ABSOLUTE AUTO 1.71 K/mm3 (0.84-5.20); LYMPHOCYTES PERCENT AUTO 16 % (21-46); MONOCYTES ABSOLUTE AUTO 1.56 K/mm3 (0.16-1.47); MONOCYTES PERCENT AUTO 14 % (4-13); Mean Corpuscular HGB Conc 35.9 g/dL (31.5-36.5); Mean Corpuscular Volume 74 fL (80-100); NEUTROPHILS ABSOLUTE AUTO 7.47 K/mm3 (1.96-9.15); NEUTROPHILS PERCENT AUTO 68 % (41-73); NRBC ABSOLUTE 0.00 K/mm3 (0.00-0.02); NRBC Auto 0.0 /100 WBC (0.0-0.2); Platelet Count 147 K/mm3 (150-400); RDW Coefficient Variation 12.2 % (11.7-14.2); RDW Standard Deviation 32.9 fL (35.1-46.3)
[2025-04-20 07:24] LABS: Anion Gap 9.0 mmol/L (3-11); Blood Urea Nitrogen 15.0 mg/dL (8-24); CO2, Blood 26.0 mmol/L (21-32); Calcium, Blood 7.8 mg/dL (8.5-10.1); Chloride, Blood 99.0 mmol/L (98-108); Creatinine, Blood 0.57 mg/dL (0.60-1.20); Glucose, Blood 327.0 mg/dL (70-99); Potassium, Blood 3.8 mmol/L (3.5-5.5); Sodium, Blood 130.0 mmol/L (136-145)
[2025-04-20 07:27] LABS: Ferritin, Serum 575.0 ng/mL (26-388); Total Iron Binding Capacity 163.0 ug/dL (250-450)
[2025-04-20] MEDS ORDERED: Insulin Human Lispro 100 Units/ML 3ML Syringe SC SCH ×4 (07:30→11:30)
[2025-04-20] MEDS ORDERED: Insulin Regular 100 UNIT/ML 10ML Vial SC SCH (07:30)
[2025-04-20 07:48] VITALS: BP 126/77
[2025-04-20] MEDS ORDERED: Vancomycin (Pharmacy Consult) IV SCH (08:35)
[2025-04-20] MEDS ORDERED: Lactobacil 2-S.Thermo-Bifido 1 1 Cap PO SCH (09:00)
--- NOTE | 2025-04-20 09:27 | NUR ---
PT HAS AN ORDER FOR IV POTASSIUM FROM 0110 AM NOT GIVEN. SPOKE TO DR ON AM ROUNDS AND RECIEVED ORDER TO HOLD THE POTASSIUM DOSE LAST LAB WAS 3.8. CALLED DR NATHAN FOR CLARIFICATION ON INSULIN DOSE. PT HAS AN ORDER FROM 0500 (NOT GIVEN) FOR 10 UNITS OF LANTUS, THEN AN ADDITIONAL DOSE WAS ORDERED FOR 10 UNITS NOW AND 20 UNITS DAILY. THEN AN ORDER IS IN FOR 20 UNITS DAILY IN THE AM AND 10 UNITS DAILY AT NIGHT. WAITING FOR A CALL BACK.
--- NOTE | 2025-04-20 10:05 | NUR ---
CALLED DR ELMORE FOR CLARIFICATION- 10 UNITS LANTUS ORDERED AT 0500 NOT GIVEN, 10 UNITS LANTUS ORDERED AT 0700 NOT GIVEN, 10 UNITS ORDERED TONIGHT AT BEDTIME. 20 UNITS DAILY ORDERED FOR TOMORROW. CALLED DR ELMORE. ORDER TO HOLD ALL DOSES THIS AM AND GIVE 10 UNITS TONIGHT AT BEDTIME. MD SALEEM PT HAS RECIEVED NO LANTUS INSULIN TODAY.
[2025-04-20] MEDS ORDERED: Piperacillin/Tazobactam Sod 3.375 GM in NS 100 ML IV SCH ×2 (12:00→21:00)
--- NOTE | 2025-04-20 17:53 | NUR ---
CALLED DR ELMORE- PER ORDER FOR BG GREATER THAN 350 MD TO BE NOTIFIED. PT BG 381, THIS WILLL GET 13 UNITS OF COVERAGE NOW. MD AWARE NO NEW ORDERS, OK TO GIVE WHAT IS ORDERED CURRENTLY.
--- NOTE | 2025-04-20 19:34 | NUR ---
SHIFT SUMMARY- PT ALERT, ORIENTED AND INDEPENDENT IN THE ROOM. HE HAD A SHOWER AND FULL LINNEN CHANGE. NEW DRESSING PLACED AT 1800. REPORT COMPLETED WITH NIGHT RN. PT HAD IV PAIN MEDS AROUND 1800, IV VANCO IS RUNNING AT THE TIME OF SHIFT CHANGE SO 1800 PIP TAZO IS PULLED WAITING TO RUN. PT IS IN BED LAYING FACE DOWN, NO S&S OF DISTRESS NOTED AT THE TIME OF SHIFT CHANGE.
[2025-04-20 20:05] VITALS: BP 141/82
--- NOTE | 2025-04-21 02:35 | NUR ---
SHIFT SUMMARY: PT RESTING MOST OF SHIFT. FAMILY AT BEDSIDE. MEDICATED PER EMAR. NO ACUTE CHANGES THIS SHIFT.
[2025-04-21 05:17] VITALS: BP 115/77
[2025-04-21 07:56] VITALS: BP 139/84
[2025-04-21] MEDS ORDERED: Insulin Glargine-Yfgn 100 Unit/mL 3 ML SYR SC SCH ×2 (09:00)
[2025-04-21] MEDS ORDERED: HYDROmorphone HCl/Pf 1MG SYR IV PRN (11:10)
[2025-04-21] MEDS ORDERED: Insulin Human Lispro 100 Units/ML 3ML Syringe SC SCH (11:30)
[2025-04-21] MEDS ORDERED: Enoxaparin 40 MG/0.4 ML SYR SC SCH (13:00)
[2025-04-21 15:41] VITALS: BP 136/75
--- NOTE | 2025-04-21 17:05 | NUR ---
SHIFT SUMMARY- PT ALERT AND ORIENTERD, INDEPENDENT IN THE ROOM. PT HAS HAD ELEVATED BG T/O THE SHIFT. LANTUS DOSE INCREASED THIS AM. PT HAS SEVERE PAIN WITH THE DRESSING CHANGES, DILAUDID ORDERED FOR DRESSING CHANGES NEEDED. DRESSING WAS CHANGED THIS AM, PHOTOS TAKEN PER MD ORDER AND NEW DRESSING PLACED. PT IN BED LYING PRONE WITH PILLOWS UNDER HIS HIPS OFF AND ON. NO CURRENT S&S OF DISTRESS NOTED, PAIN SEEMS WELL MANAGED WITH PO MEDS.
[2025-04-21 18:10] LABS: Vancomycin, Trough 5.0 ug/mL (5.0-10.0)
[2025-04-21 19:35] VITALS: BP 117/66
--- NOTE | 2025-04-22 03:32 | NUR ---
SHIFT SUMMARY: AOX4. VSS. PT IS HAVING PAIN TO THE WOUND SITE, MEDICATED PER eMAR. DRESSING IS C/D/I. RECIEVING IV ABX ORDERED. CALL LIGHT IS WITHIN REACH. BED IS LOW AND LOCKED.
[2025-04-22 06:00] VITALS: BP 113/75
[2025-04-22 07:28] VITALS: BP 134/95
[2025-04-22 11:30] LABS: Anion Gap 8.0 mmol/L (3-11); Blood Urea Nitrogen 10.0 mg/dL (8-24); CO2, Blood 29.0 mmol/L (21-32); Calcium, Blood 8.4 mg/dL (8.5-10.1); Chloride, Blood 100.0 mmol/L (98-108); Creatinine, Blood 0.42 mg/dL (0.60-1.20); Glucose, Blood 305.0 mg/dL (70-99); Potassium, Blood 4.2 mmol/L (3.5-5.5); Sodium, Blood 133.0 mmol/L (136-145)
--- NOTE | 2025-04-22 13:04 | NUR ---
PT MEDS GIVEN PATIENT HAS A 2 QUART BOTTLE OF APPLE JUICE AND QUART OF WHOLE MILK AT BEDSIDE. PT DECLINES WATER OR SUGAR FREE BEVERAGE
[2025-04-22] MEDS ORDERED: Cleocin HCl300 MG PO (14:09)
[2025-04-22] MEDS ORDERED: LANTUS SOL100 UNIT/1 SC (14:11)
[2025-04-22] MEDS ORDERED: HUMALOG KW100 UNIT/1 SC (14:12)
[2025-04-22] MEDS ORDERED: OXAYDO5 M1 PO (14:13)
--- NOTE | 2025-04-22 14:43 | NUR ---
DC SUMMARY PT DC THIS SHIFT DC INSTRUCTION GONE OVER WITH PT WHOM STATED UNDERSTANDING. EDUCATION WENT OF AND PROVIDED WITH PT ON INSULIN ADMINISTRATION, DIABETIC DIET. PT WAS GIVEN HARD SCRIPT AND PLACED IN DC FOLDER. PT DECLINED TO ALLOW STAFF TO ASSIST OFF UNIT PT WALKED TO ELEVATORS AND STEADY GAIT OBSERVED.
== END 2025-04-22 15:10 | disposition home or self-care (01) | DRG 603 ==
LOC: ER 23:12 → MEDS 04-20 04:43
PROVIDERS: Emergency Medicine; Family Medicine; Hospitalist; Student in an Organized Health Care Education/Training Program; ADMIT Internal Medicine
PROC: 0J990ZZ Drainage of Buttock Subcutaneous Tissue and Fascia, Open Approach (ICD-10-PCS; principal; 2025-04-20)
PROC: 3E03329 Introduction of Other Anti-infective into Peripheral Vein, Percutaneous Approach (ICD-10-PCS; 2025-04-20)
DX: L02.31 Cutaneous abscess of buttock (principal); K57.32 Diverticulitis of large intestine without perforation or abscess without bleeding; L03.317 Cellulitis of buttock; I10 Essential (primary) hypertension; F17.290 Nicotine dependence, other tobacco product, uncomplicated; E11.65 Type 2 diabetes mellitus with hyperglycemia; E86.0 Dehydration; D50.9 Iron deficiency anemia, unspecified; E11.40 Type 2 diabetes mellitus with diabetic neuropathy, unspecified; Z86.14 Personal history of Methicillin resistant Staphylococcus aureus infection; Z79.4 Long term (current) use of insulin
CPT/HCPCS: 36415; 74177; 80048; 80053; 80202; 81003; 82010; 82728; 82803; 82947; 83036; 83540; 83550; 83605; 85025; 86141; 87040; 87070; 87075; 87077; 87147; 87186; 87205; 93005; 93010; 96365-59; 96367; 96375; 99284-25; A9270; J0692; J1171; J1650; J1815; J2543; J3373; J3480; J7030; J7040; J7050; Q9967